=== PATIENT | male | born 1990 | race African-American/Black ===

== ENCOUNTER 2017-06-19 16:16 | Emergency (ER) | payer SELFPAY ==
[2017-06-19 16:48] VITALS: BP 141/61
--- NOTE | 2017-06-19 17:06 | ED Physician Documentation ---
Abscess - HISTORIAN Historian: patient - HPI Stated Complaint: Possible cyst on abdomen Chief Complaint: Abscess Onset: days ago (4) Timing: still present Duration: persistent since Location: other (abdomen ) Quality: painful Identified Cause?: No Where: home Context: Medication Exposure: antibiotic (He is taking his friend's bactrim ) Context: Food Exposure: none Further Comments: yes (He states the area started 4 days ago and he has been taking the friends bactrim. He states the area has been drianing green/yellow drainge for a few days. No fever.) - ROS CONST: none CVS/RESP: none EYES/ENT: none GI/: none - PAST HX Past History: none Other History: none Surgeries/Procedures: No Immunizations: UTD Allergies/Adverse Reactions: Allergies Allergy/AdvReac Type Severity Reaction Status Date / Time No Known Allergies Allergy Verified 06/19/17 16:47 Home Medications: Ambulatory Orders Medication Instructions Recorded NK [NK] 07/15/14 - SOCIAL HX Smoking History: non-smoker Alcohol Use: none Drug Use: none - FAMILY HX Family History: none - VITAL SIGNS Vital Signs: Vital Signs Temp Pulse Resp BP Pulse Ox 69 18 141/61 98 06/19/17 16:25 06/19/17 16:25 06/19/17 16:25 06/19/17 16:25 - REVIEWED ASSESSMENTS Nursing Assessment Reviewed: Yes Vitals Reviewed: Yes Abscess Physical Exam - EXAM General Appearance: no acute distress Skin: warm,dry Location: abdomen Character: symmetric, erythematous Symptoms: tenderness, swelling, crusting, rough texture (approx 2 cm . center open. area not firm. no expression of drainage. he has already used 2 days of Bactrim DS ). No: induration EENT: eyes nml inspection Respiratory: no resp distress, chest non-tender, breath sounds normal CVS: reg. rate & rhythm, heart sounds nml, murmur Abdomen: non-tender, no organomegaly, nml bowel sounds, no distention Neuro/Psych: oriented x3, CN's nml as tested, motor nml Discharge Clincal Impression: Abscess Referrals: Primary Doctor,No [Primary Care Provider] - 2 Days Comments: 1. Continue bactrim DS x 7 days 2. Warm packs 3. Wash hands 4. Follow up with PCP in 4 days 5. Return to ER if area increases in size or pain. Fever over 101. 6. OTC for pain Condition: Stable Disposition: 01 HOME, SELF-CARE Decision to Admit: NO Date of Decison to Admit: 06/19/17 Decision Time: 17:10
== END 2017-06-19 17:11 | disposition home or self-care (01) ==
LOC: ED 16:16
DX: L02.211 Cutaneous abscess of abdominal wall (principal)
CPT/HCPCS: 99282; 99283

== ENCOUNTER 2018-11-13 20:56 | Emergency (ER) | payer OTHER ==
[2018-06-05 20:53] VITALS: BP 150/86
[2018-11-13] MEDS ORDERED: Lidocaine 1% 5ml 10 MG/ML VIAL IJ ONE (20:59)
--- NOTE | 2018-11-13 21:22 | ED Physician Documentation ---
General Adult - HISTORIAN Historian: patient - HPI Chief Complaint: Laceration/Recheck/Suture (Finger Laceration) Additional Information: Patient is a 28-year-old male that presents to the ER with laceration to the right 5th digit of hand. He was doing the dishes and cut his finger on glass cup. Tetanus is current. Onset: minutes Timing: still present Severity: mild Modifying Factors: Dishes - ROS CONST: no problems EYES/ENT: none CVS/RESP: none GI/: none MS/SKIN/LYMPH: none NEURO/PSYCH: denies: headache - PAST HX Past History: none Other History: none Surgeries/Procedures: none Immunizations: tetanus (6 months ago for work), UTD Allergies/Adverse Reactions: Allergies Allergy/AdvReac Type Severity Reaction Status Date / Time No Known Allergies Allergy Verified 11/13/18 21:25 Home Medications: Ambulatory Orders Medication Instructions Recorded NK 07/15/14 - SOCIAL HX Smoking History: less than 1 pack/day Alcohol Use: rarely Drug Use: none - FAMILY HX Family History: No - VITAL SIGNS Vital Signs: Vital Signs Temp Pulse Resp BP Pulse Ox 150/86 95 11/13/18 21:45 11/13/18 21:45 - REVIEWED ASSESSMENTS Nursing Assessment Reviewed: Yes Vitals Reviewed: Yes Procedures Wound Location: upper extremity (finger) Wound Length: 2 cm Wound's Depth, Shape: flap Wound Explored: clean Irrigated w/ Saline (ccs): 100 Betadine Prep?: Yes Anesthesia: 1% Lidocaine Volume of Anesthetic: 5 Wound Debrided: minimal Wound Repaired With: sutures, Dermabond Suture Size/Type: 5:0 Number of Sutures: 4 (dermabond to superficial area) Sterile Dressing Applied?: Yes Progress: patient tolerated well ED Results Lab/Radiology - Orders Orders: ED Orders Category Date Time Status Lidocaine 1% 5ml [Xylocaine] Med 11/13/18 20:59 Discontinued 50 mg IJ NOW ONE General Adult Physical Exam - PHYSICAL EXAM GENERAL APPEARANCE: no distress EENT: eye inspection normal, ENT inspection normal NECK: normal inspection, supple RESPIRATORY: breath sounds normal CVS: heart sounds normal ABDOMEN: normal bowel sounds SKIN: warm/dry, other (2 cm lac to the 5th digit of right hand) EXTREMITIES: normal range of motion NEURO: oriented X3, CN's nml as tested, motor nml, sensation nml, mood/affect nml, cognition normal Discharge Clincal Impression: Laceration of finger of right hand Referrals: Primary Doctor,No [Primary Care Provider] - 2 Days Additional Instructions: Keep finger clean and dry Apply triple antibiotic ointment and keep dressing on Follow up with PCP in 7 days to have sutures removed Condition: Good Disposition: 01 HOME, SELF-CARE Decision to Admit: NO Decision Time: 21:45
== END 2018-11-13 21:44 | disposition home or self-care (01) ==
LOC: ED 20:56
DX: S61.216A Laceration without foreign body of right little finger without damage to nail, initial encounter (principal); W25.XXXA Contact with sharp glass, initial encounter; Y93.G1 Activity, food preparation and clean up; Y99.8 Other external cause status
CPT/HCPCS: 12001; 99282; 99284